=== PATIENT | male | born 1995 | race Hispanic/Latino ===

== ENCOUNTER 2019-04-22 23:10 | Emergency (ER) | payer OTHER, SELFPAY ==
--- NOTE | 2019-04-22 23:13 | DI.CT.S_ITS ---
PROCEDURE: CT HEAD/BRAIN WO CON INDICATIONS: fall, etoh, head injury TECHNIQUE: Noncontrast 4.5 mm thick angled axial sections acquired from the foramen magnum to the vertex, with coronal and sagittal reformats. For radiation dose reduction, the following was used: automated exposure control, adjustment of mA and/or kV according to patient size. COMPARISON: None. FINDINGS: Image quality: Excellent. CSF spaces: Basal cisterns are patent. No extra-axial fluid collections. Ventricles are normal in size and shape. Brain: No midline shift. No intracranial masses or hemorrhage. Key-white matter interface is normal. Skull and face: Calvarium and visualized facial bones are intact, without suspicious lesions. Sinuses: Visualized sinuses and mastoids are clear. IMPRESSION: No acute intracranial abnormalities. No significant discrepancy with the awake overnight counselor radiology preliminary report. Dictated by: Urbano Parra M.D. on 04/23/2019 at 7:14 Transcribed by: MANA on 04/23/2019 at 7:14 Approved by: Urbano Parra M.D. on 04/23/2019 at 7:25
[2019-04-22 23:16] VITALS: BP 162/100; PULSE 112; RESP 18; TEMP 36.6; O2SAT 98
--- NOTE | 2019-04-22 23:59 | ED_ITS ---
HPI - Wound/Laceration General Chief Complaint: Wound/Laceration Stated Complaint: Head Injury Time Seen by Provider: 04/22/19 23:13 Source: patient and EMS Mode of arrival: EMS Limitations: no limitations History of Present Illness HPI narrative: 23-year-old male occasional smoker with benign medical history presents by EMS for evaluation fall with head injury. He was running home from a local bar after having some alcohol when he tripped and fell and struck his head on the concrete suffering a laceration on his scalp. He denies any loss of consciousness and has full recall. He denies any nausea, vomiting or diarrhea. He denies other injury. He states he is unclear of his last tetanus Onset (ago): minute(s) Location: scalp Place: outdoors Patient tetanus UTD: No Context: accidental Associated symptoms: none Review of Systems Constitutional Denies chills, Denies fever(s), Denies lethargy and Denies weakness Eyes Denies change in vision, Denies eye discharge, Denies irritation and Denies loss of vision ENT Ears, Nose, Mouth, and Throat: Denies change in voice, Denies neck pain and Denies sore throat Cardiovascular Denies chest pain, Denies irregular heart rhythm, Denies lightheadedness, Denies palpitations, Denies dyspnea, Denies dyspnea on exertion and Denies orthopnea Respiratory Denies cough, Denies dyspnea, Denies dyspnea on exertion and Denies wheezing Gastrointestinal Gastrointestinal: Denies abdominal pain, Denies change in bowel habits, Denies diarrhea, Denies nausea and Denies vomiting Genitourinary Denies hematuria, Denies flank pain, Denies urinary incontinence and Denies urinary urgency Musculoskeletal Denies neck pain Integumentary/Breasts Denies pruritus, Denies erythema, Denies rash and Reports wounds Neurologic Denies confusion, Denies loss of vision and Denies weakness Psychiatric Denies anxiety, Denies confusion, Denies depression, Denies homicidal ideation and Denies suicidal ideation Endocrine Denies palpitations Hematologic/Lymphatic Denies easy bruising Allergic/Immunologic Denies wheezing PFSH Social History Smoking Status: Current some day smoker Social History Smoking Status: Current some day smoker Exam Narrative Exam Narrative: GENERAL: 23-year-old male appears stated age, alert and oriented, GCS 15 HEAD: 3 cm scalp laceration with dried blood EYES: Pupils equal round and reactive. Extraocular motions intact. No scleral icterus. No injection or drainage. ENT: Nose without bleeding, purulent drainage or septal hematoma. Throat without erythema, tonsillar hypertrophy or exudate. Uvula midline. Airway patent. NECK: Trachea midline. No JVD or lymphadenopathy. Supple, nontender, no meningeal signs. CARDIOVASCULAR: Regular rate and rhythm without murmurs, gallops, or rubs. RESPIRATORY: Clear to auscultation. Breath sounds equal bilaterally. No wheezes, rales, or rhonchi. GASTROINTESTINAL: Abdomen soft, non-tender, nondistended. No hepato- splenomegaly, or palpable masses. No guarding. EXTREMITIES: No clubbing, cyanosis, or edema. No joint tenderness, effusion, or edema noted. BACK: Nontender without deformity or crepitance. No flank tenderness. NEURO: AOx3. SKIN: No rash or erythema. Initial Vital Signs Initial Vital Signs: Vital Signs Temperature 98 F 04/22/19 23:16 Pulse Rate 112 H 04/22/19 23:16 Respiratory Rate 18 04/22/19 23:16 Blood Pressure 162/100 H 04/22/19 23:16 Pulse Oximetry 98 04/22/19 23:16 Procedures Laceration Repair Laceration 1: Site: scalp Size (cm): 3 Local Anesthetic: lidocaine 1% and with epi Pre-repair: wound explored and irrigated extensively Skin layer closed with: alie Course Orders Ordered: ED Orders 04/22/19 23:13 CT head/brain wo con Stat Vital Signs - 8 hr 04/22/19 23:16 04/23/19 00:17 Temperature 98 F Pulse Rate 112 H 92 H Respiratory Rate 18 20 Blood Pressure 162/100 H Pulse Oximetry 98 98 MDM - Wound/Laceration Imaging Data CT scan - head: Radiologist's impression: No bleed Discharge Plan Departure Patient Disposition: Home Clinical Impression: Laceration Discharge Date/Time: 04/23/19 00:21 Interventions: ED Discharge Assessment Last Done: 04/23/19 00:17 Instructions: DI for Laceration Repair Activity Restrictions/Additional Instructions: Please keep the wound clean and dry to the best of your ability. Please monitor for signs of infection such as redness to the skin or increasing pain. Have the alie removed by your doctor in about 7 days. If you are unable to get into your doctor, we would be happy to remove the alie in that same timeframe. Referrals: Alyssa Freeman MD [Non-Staff] -
[2019-04-23 00:17] VITALS: PULSE 92; RESP 20; O2SAT 98
== END 2019-04-23 00:21 | disposition home or self-care (01) ==
PROVIDERS: Emergency Provider Emergency Medicine
DX: S01.01XA Laceration without foreign body of scalp, initial encounter (principal); W01.0XXA Fall on same level from slipping, tripping and stumbling without subsequent striking against object, initial encounter
CPT/HCPCS: 12002; 70450; 99283; 99284

== ENCOUNTER 2024-04-11 10:19 | Emergency (ER) | payer SELFPAY ==
[2024-04-11] VITALS (7 sets, daily range): BP systolic 110–137; BP diastolic 71–85; PULSE 61–91; RESP 12–16; TEMP 36.6–36.7; O2SAT 96–98; BMI 20.9
--- NOTE | 2024-04-11 10:32 | ED_ITS ---
HPI - Chest Pain General Chief Complaint: Chest Pain Stated Complaint: diff breathing, thightness on chest Time Seen by Provider: 04/11/24 10:27 Source: patient Mode of arrival: Ambulatory Limitations: no limitations History of Present Illness HPI narrative: Patient is a 28-year-old male. Does smoke marijuana and occasionally uses a vape pen who is here for evaluation of shortness of breath. He states that he w as having some discomfort in the left side of his chest. Symptoms started this morning. The shortness of breath the cause because when he takes a deep breath it hurts. No fevers. No cough. No recent travel. No lower extremity swelling. No skin changes. Has not tried anything for symptoms prior to arrival. Related Data Home Medications Medication Instructions Recorded Confirmed No Known Home Medications 04/28/19 06/14/20 Allergies Allergy/AdvReac Type Severity Reaction Status Date / Time No Known Drug Allergies Allergy Unverified 06/14/20 16:17 Review of Systems Review of Systems ROS Unobtainable: All systems reviewed & are unremarkable except as noted in HPI and below Patient History Social History Smoking Status: Current every day smoker Tobacco: How many years used: 10 quit status: has quit before second hand exposure: No alcohol intake: current (on the weekends) substance use type: marijuana (vape, daily) Smoking Status: Current every day smoker tobacco type: vaping alcohol intake frequency: 0-2 drinks per day Substance Use Type: marijuana Exam Initial Vital Signs Initial Vital Signs: Vital Signs Temperature 97.8 F 04/11/24 10:20 Pulse Rate 85 04/11/24 10:20 Respiratory Rate 16 04/11/24 10:20 Blood Pressure 137/85 04/11/24 10:20 Pulse Oximetry 97 04/11/24 10:20 Oxygen Delivery Method Room Air 04/11/24 10:20 Const General: cooperative, comfortable and No ill appearing HENMT Head: normal to inspection and normocephalic Chest Chest: No crepitus and No tenderness Resp Effort & Inspection: normal respiratory effort Auscultation: clear to auscultation bilaterally Cardio Rate: regular rate Rhythm: regular rhythm Skin General: no rashes or lesions noted Neuro General: patient alert, patient awake and moves all extremities Extrem General: No edema Scores PERC Score Age greater than or equal to 50 years: No Heart rate greater than or equal to 100 bpm: No Room Air O2 Sat less than 95%: No Unilateral leg swelling: No Recent trauma or surgery: No Hemoptysis: No Prior PE or DVT: No Hormone Use: No Total PERC Score: 0 Course Orders Ordered: ED Orders 04/11/24 10:32 XR chest 1V Stat EKG-12 Lead Stat Vital Signs Vital signs: Vital Signs - 8 hr 04/11/24 10:20 04/11/24 10:24 04/11/24 10:24 Temperature 97.8 F Pulse Rate 85 91 H Respiratory Rate 16 Blood Pressure 137/85 137/85 Pulse Oximetry 97 97 Oxygen Delivery Method Room Air 04/11/24 10:30 04/11/24 11:00 04/11/24 11:30 Temperature Pulse Rate 91 H 67 61 Respiratory Rate 12 12 13 Blood Pressure Pulse Oximetry 98 96 97 Oxygen Delivery Method Room Air Room Air MDM - Chest Pain Imaging Data Chest x-ray: Radiologist's Impression: PROCEDURE: XR CHEST 1V INDICATIONS: Short of breath TECHNIQUE: One view of the chest was acquired. COMPARISON: None. FINDINGS: Surgical changes and devices: None. Lungs and pleura: On this semiupright portable chest examination, no large pneumothorax or large pleural effusions are seen. No focal infiltrates are seen. Mediastinum: Mediastinal contours appear normal. Heart size is normal. Bones and chest wall: No suspicious bony lesions. Overlying soft tissues appear unremarkable. IMPRESSION: Unremarkable portable chest. ECG Data Attestation: I personally reviewed and interpreted this ECG as follows: Interpretation: Sinus rhythm Ventricular rate is 76 Normal axis Normal QRS Normal QTC No ST T wave changes MDM Narrative Medical decision making narrative: Not hypoxic, not tachypneic, chest x-ray negative, EKG is unremarkable. Low suspicion for pneumonia. Perc score is negative. Low suspicion for ACS. Symptoms have just been going on this morning. Was no indication for antibiotics. I did discuss all this with the patient. Discussed conservative measures for now. He was given return precautions and follow-up instructions. He expressed understanding and agreement. Discharge Plan Departure Patient Disposition: Home Clinical Impression: Atypical chest pain Instructions: DI for Atypical Chest Pain Activity Restrictions/Additional Instructions: The imaging studies and EKG that we did here in the emergency department are very reassuring. I suspect that your symptoms will improve in the next couple days. Recommend anti-inflammatory such as Motrin or Naprosyn. Return to the emergency department for new or worsening symptoms. Prescriptions: No Action No Known Home Medications Referrals: Miscellaneous,Doctor, MD [Primary Care Provider] - Stand Alone Forms: Patient Portal/API
--- NOTE | 2024-04-11 10:35 | EKG_ITS ---
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
== END 2024-04-11 12:13 | disposition home or self-care (01) ==
PROVIDERS: Emergency Provider Emergency Medicine
DX: R07.89 Other chest pain (principal); R06.02 Shortness of breath
CPT/HCPCS: 71045; 93005; 93010; 99283; 99284